=== PATIENT | female | born 1990 | race African-American/Black ===

== ENCOUNTER 2021-03-23 08:00 | Inpatient (IN) | payer MEDICAID ==
[~2021-03-23] VITALS: Ht 177.8 cm; Wt 95.3 kg
[~2021-03-23 08:00] MED LIST: PREN-88 PO
[2021-03-23] MEDS ORDERED: LACTATED RINGERS 1,000 ML IV SCH (09:15)
[2021-03-23] MEDS ORDERED: METHYLERGONOVINE MALEATE 0.2 MG/ML IM PRN (09:15)
[2021-03-23] MEDS ORDERED: NALOXONE HCL 0.4 MG/ML 1ML VIAL IM PRN (09:15)
[2021-03-23] MEDS ORDERED: MORPHINE SULFATE/PF 1MG/ML 10ML AMP ONE (10:10)
[2021-03-23] MEDS ORDERED: CEFAZOLIN SODIUM 1000MG/VIAL ONE (10:10)
[2021-03-23] MEDS ORDERED: ONDANSETRON HCL 4MG/2ML INJ ONE (10:10)
[2021-03-23] MEDS ORDERED: FENTANYL CITRATE/PF 50MCG/ML 2ML VIAL ONE (10:10)
[2021-03-23] MEDS ORDERED: PHENYLEPHRINE HCL 10 MG/ML 1ML (IV VIAL) IV ONE (10:10)
[2021-03-23] MEDS ORDERED: EPHEDRINE SULFATE 50MG/ML VIAL ONE (10:10)
[2021-03-23] MEDS ORDERED: OXYTOCIN 10 UNITS/ML 1ML ONE (10:10)
[2021-03-23 10:23] LABS: CLARITY URINE CLEAR (CLEAR); COLOR URINE YELLOW (YELLOW); KETONES URINE NEGATIVE (NEGATIVE); LEUKOCYTE ESTERASE URINE NEGATIVE (NEGATIVE); NITRITE URINE NEGATIVE (NEGATIVE); OCCULT BLOOD URINE NEGATIVE (NEGATIVE); PROTEIN URINE TRACE (NEGATIVE); SPECIFIC GRAVITY URINE 1.023 (1.005-1.030)
[2021-03-23 10:23] LABS: BASOPHILS % 0.7 % (0.0-2.0); EOSINOPHILS % 1.5 % (0.0-5.0); HEMATOCRIT. 33.3 % (36.0-48.0); HEMOGLOBIN. 11.4 g/dL (12.0-16.0); LYMPHOCYTES % 28.5 % (20.0-50.0); MEAN CORPUSCULAR HEMOGLOBIN 30.9 pg (28.0-32.0); MEAN CORPUSCULAR VOLUME 89.9 fL (81.0-99.0); MEAN PLATELET VOLUME 7.2 fl (7.4-10.4); MONOCYTES % 7.6 % (2.0-8.0); NEUTROPHILS % 61.7 % (40.0-76.0); PLATELET 309 x1000/uL (130-400); RED BLOOD CELL COUNT 3.71 mill/uL (4.2-5.4); RED CELL DISTRIBUTION WIDTH 16.3 % (11.6-14.6)
[2021-03-23 10:34] LABS: INR 0.9; PARTIAL THROMBOPLASTIN TIME 26.3 sec (23.4-31.0)
[2021-03-23] MEDS ORDERED: SODIUM CHLORIDE 0.9% 10ML VIAL ONE (11:46)
[2021-03-23 11:49] LABS: *COCAINE SCREEN URINE NEGATIVE (NEGATIVE)
[2021-03-23 11:51] LABS: *AMPHETAMINES SCREEN URINE NEGATIVE (NEGATIVE); *BARBITURATES SCREEN URINE NEGATIVE (NEGATIVE); *BENZODIAZEPINES SCREEN URINE NEGATIVE (NEGATIVE)
[2021-03-23 11:52] LABS: CANNABINOID URINE SCREEN NEGATIVE (NEGATIVE); METHADONE URINE SCREEN NEGATIVE (NEGATIVE); OPIATES URINE SCREEN NEGATIVE (NEGATIVE); PHENCYCLIDINE URINE SCREEN NEGATIVE (NEGATIVE)
[2021-03-23 11:57] LABS: HEPATITIS B SURFACE ANTIGEN NEGATIVE
[2021-03-23] MEDS ORDERED: BUPIVACAINE HCL/DEXTROSE/PF 0.75% 2ML AMP INJ ONE (14:28)
[2021-03-23] MEDS ORDERED: KETOROLAC 60MG/2ML VIAL IM ONE ×2 (14:37→14:51)
[2021-03-23] MEDS ORDERED: DIPHENHYDRAMINE 50MG/ML VIAL ONE (14:37)
[2021-03-23] MEDS ORDERED: NALOXONE HCL 0.4 MG/ML 1ML VIAL IV PRN (15:00)
[2021-03-23] MEDS ORDERED: BUTORPHANOL TARTRATE 2 MG/ML VIAL IV PRN (15:00)
[2021-03-23] MEDS ORDERED: DIPHENHYDRAMINE 50MG/ML VIAL IV PRN (15:00)
[2021-03-23] MEDS ORDERED: ONDANSETRON HCL 4MG/2ML INJ IV PRN (17:15)
[2021-03-23] MEDS ORDERED: IBUPROFEN 400MG TABLET PO PRN (17:15)
[2021-03-23] MEDS ORDERED: BISACODYL 10MG SUPP PR PRN (17:15)
[2021-03-23] MEDS ORDERED: LANOLIN OINT 7GM TUBE TOP PRN (17:15)
[2021-03-23] MEDS ORDERED: DIPHENHYDRAMINE 25MG CAPSULE PO PRN (17:15)
[2021-03-23] MEDS ORDERED: DEXT 5%/LR + PITOCIN 20UNITS/L 1,000 ML IV SCH (17:15)
[2021-03-23] MEDS ORDERED: RHO(D) IMMUNE GLOBULIN 300 MCG/SYR IM PRN (17:15)
[2021-03-23] MEDS ORDERED: HYDROCODONE/ACETAMINOPHEN 5/325MG TABLET PO PRN (17:15)
[2021-03-23] MEDS: DEXT 5%/LR + PITOCIN 20UNITS/L 1,000 ML IV SCH ×2 (17:33→22:53)
[2021-03-23 19:30] VITALS: BP 121/72
[2021-03-23] MEDS: DOCUSATE SODIUM 100MG CAPSULE PO SCH (20:24)
[2021-03-23] MEDS: KETOROLAC 30MG/ML VIAL IM SCH (20:25)
[2021-03-24] VITALS: BP 110/73
[2021-03-24] MEDS: KETOROLAC 30MG/ML VIAL IM SCH (02:29)
[2021-03-24 04:00] VITALS: BP 116/55
[2021-03-24 07:30] VITALS: BP 105/62
[2021-03-24 07:59] LABS: BASOPHILS % 0.6 % (0.0-2.0); EOSINOPHILS % 0.5 % (0.0-5.0); HEMATOCRIT. 28.8 % (36.0-48.0); HEMOGLOBIN. 9.6 g/dL (12.0-16.0); LYMPHOCYTES % 16.4 % (20.0-50.0); MEAN CORPUSCULAR HEMOGLOBIN 30.8 pg (28.0-32.0); MEAN CORPUSCULAR VOLUME 92.5 fL (81.0-99.0); MEAN PLATELET VOLUME 7.2 fl (7.4-10.4); MONOCYTES % 10.4 % (2.0-8.0); NEUTROPHILS % 72.1 % (40.0-76.0); PLATELET 278 x1000/uL (130-400); RED BLOOD CELL COUNT 3.11 mill/uL (4.2-5.4); RED CELL DISTRIBUTION WIDTH 16.1 % (11.6-14.6)
[2021-03-24] MEDS ORDERED: PRENATAL VIT/FE FUMARATE/FA TABLET PO SCH (09:00)
[2021-03-24 16:58] VITALS: BP 110/62
[2021-03-24] MEDS: ACETAMINOPHEN WITH CODEINE 300/30MG TABLET PO PRN (17:54)
[2021-03-24 20:00] VITALS: BP 119/69
[2021-03-24] MEDS: DOCUSATE SODIUM 100MG CAPSULE PO SCH (20:15)
[2021-03-25] VITALS: BP 118/67
[2021-03-25] MEDS: ACETAMINOPHEN WITH CODEINE 300/30MG TABLET PO PRN (02:12)
[2021-03-25 04:00] VITALS: BP 116/68
== END 2021-03-25 12:40 | disposition home or self-care (01) | DRG 540 ==
LOC: OBSVTOIN 08:00 → 8 EST LDRP 08:00 → 8EST 17:59
PROVIDERS: ADMIT Obstetrics & Gynecology; ATTEND Obstetrics & Gynecology
PROC: 10D00Z1 Extraction of Products of Conception, Low, Open Approach (ICD-10-PCS; principal; 2021-03-23)
DX: O34.211 Maternal care for low transverse scar from previous cesarean delivery (principal); D62 Acute posthemorrhagic anemia; O90.81 Anemia of the puerperium; E55.9 Vitamin D deficiency, unspecified; O99.284 Endocrine, nutritional and metabolic diseases complicating childbirth; Z20.822 Contact with and (suspected) exposure to COVID-19; Z3A.39 39 weeks gestation of pregnancy; Z37.0 Single live birth
CPT/HCPCS: 36415; 80305; 81003; 85025; 86592; 86703; 86762; 86850; 86900; 87340; 87426; 88307; 99281; J0690; J1200; J1885; J2274; J2370; J2405; J2590; J3010; J3490; J7120